=== PATIENT | female | born 1965 | race Two or more races ===

== ENCOUNTER 2025-04-19 06:00 | Day surgery (SDC) | payer OTHER ==
[2025-04-19] MEDS ORDERED: MIDAZOLAM HCL 2 MG/2 ML VIAL IV ONE (12:45)
[2025-04-19] MEDS ORDERED: fentaNYL CITRATE 50 MCG/ML AMPUL IV PUSH ONE (12:45)
[2025-04-19] MEDS ORDERED: DIPHENHYDRAMINE HCL 50 MG/ML VIAL 1ML IV ONE (12:45)
== END 2025-04-19 14:15 | disposition home or self-care (01) ==
LOC: AMB-ENDOS 06:00
PROVIDERS: ATTEND Internal Medicine
DX: C20 Malignant neoplasm of rectum (principal); K62.89 Other specified diseases of anus and rectum